=== PATIENT | female | born 1985 | race Hispanic/Latino ===

== ENCOUNTER 2019-03-30 10:19 | Inpatient (IN) | payer MEDICAID, OTHER, SELFPAY ==
[2019-03-30] MEDS ORDERED: Butorphanol Tartrate 1 MG/ML VIAL SLOW IVP PRN (10:49)
[2019-03-30] MEDS ORDERED: Ondansetron PF 4 MG/2 ML Vial IVP PRN ×2 (10:49→12:33)
[2019-03-30] MEDS ORDERED: NS / Oxytocin 40 units/1000ml 1,000 ML IV PRN (10:49)
[2019-03-30] MEDS ORDERED: Lidocaine 1% (PF) 30 ML VIAL SC PRN (10:49)
[2019-03-30] MEDS ORDERED: Misoprostol 200 MCG TAB PR PRN (10:49)
[2019-03-30] MEDS ORDERED: Ibuprofen 800 MG TAB PO PRN (10:49)
[2019-03-30] MEDS ORDERED: Lidocaine 1% (PF) 30 ML VIAL ONE (11:00)
[2019-03-30] MEDS: NS / Oxytocin 40 units/1000ml 1,000 ML IV SCH ×2 (11:00→11:55)
[2019-03-30] MEDS ORDERED: Lactated Ringer's 1,000 ML IV SCH ×2 (11:00)
[2019-03-30 11:30] LABS: Hemoglobin 13.9 g/dL (12.0-16.0); Mean Corpuscular HGB CONC 35.2 g/dL (32.0-36.0); Mean Corpuscular Hemoglobin 33.5 pg (27.0-31.0); Mean Corpuscular Volume 95.4 fL (78.0-98.0); Mean Platelet Volume 10.2 fL (7.4-10.4); Platelet Count 151 thou/uL (130-400); RBC Distribution Width 11.6 % (11.5-14.5); Red Blood Cell (RBC) Count 4.15 mill/uL (4.20-5.40); White Blood Cell (WBC) Count 12.6 thou/uL (4.8-10.8)
[2019-03-30 11:31] VITALS: BMI 22.1
[2019-03-30 12:03] LABS: HBSAg Index 0.41 S/CO (0-0.99); Hep B Surf Ag Non-Reactive S/CO (NonReactive); Syphilis Antibody Nonreactive (Nonreactive); Syphilis Antibody Index 0.07 S/CO (<1.00 Non-Reactive)
[2019-03-30] MEDS ORDERED: Benzocaine-Menthol 82.5 ML CAN TOP PRN (12:33)
[2019-03-30] MEDS ORDERED: Lanolin Ointment 7 GM TUBE TOP PRN (12:33)
[2019-03-30] MEDS ORDERED: Bisacodyl 10 MG SUPP PR PRN (12:33)
[2019-03-30] MEDS ORDERED: diphenhydrAMINE 25 MG CAP PO PRN (12:33)
[2019-03-30] MEDS ORDERED: HYDROcodone/Acetaminophen 5/325 mg Tablet PO PRN ×2 (12:33)
[2019-03-30] MEDS ORDERED: Promethazine HCl 25 MG/ML VIAL IM PRN (12:33)
[2019-03-30] MEDS ORDERED: NS / Oxytocin 40 units/1000ml 1,000 ML IV SCH (12:33)
[2019-03-30] MEDS ORDERED: Milk Of Magnesia 30 ML UDCUP PO PRN (12:33)
[2019-03-30] MEDS ORDERED: Misoprostol 200 MCG TAB ONE (12:57)
[2019-03-30] MEDS ORDERED: Methylergonovine 0.2 MG/ML VIAL ONE (12:57)
[2019-03-30] MEDS ORDERED: Methylergonovine 0.2 MG TAB ONE (12:57)
[2019-03-30] MEDS ORDERED: Carboprost 250 MCG/ML AMP ONE (12:58)
[2019-03-30] MEDS ORDERED: Misoprostol 200 MCG TAB PO SCH (13:30)
[2019-03-30] MEDS ORDERED: Diphenoxylate HCl/Atropine Tablet PO SCH (13:30)
[2019-03-30] MEDS: Ibuprofen 800 MG TAB PO SCH ×2 (15:53→22:23)
[2019-03-30] MEDS: Ferrous Sulfate 325 MG TAB PO SCH (16:35)
[2019-03-30] MEDS: Docusate Calcium (SURFAK) 240 MG CAP PO SCH (22:23)
[2019-03-31] MEDS: Ibuprofen 800 MG TAB PO SCH ×3 (05:37→21:21)
[2019-03-31 06:14] LABS: Hemoglobin 11.7 g/dL (12.0-16.0); Mean Corpuscular HGB CONC 34.4 g/dL (32.0-36.0); Mean Corpuscular Hemoglobin 33.2 pg (27.0-31.0); Mean Corpuscular Volume 96.4 fL (78.0-98.0); Mean Platelet Volume 10.2 fL (7.4-10.4); Platelet Count 142 thou/uL (130-400); RBC Distribution Width 11.8 % (11.5-14.5); Red Blood Cell (RBC) Count 3.51 mill/uL (4.20-5.40); White Blood Cell (WBC) Count 15.4 thou/uL (4.8-10.8)
[2019-03-31] MEDS: Ferrous Sulfate 325 MG TAB PO SCH ×2 (07:51→16:29)
[2019-03-31] MEDS: Docusate Calcium (SURFAK) 240 MG CAP PO SCH ×2 (09:34→21:22)
[2019-03-31] MEDS: Prenatal Vitamin 1 TAB PO SCH (09:34)
[2019-04-01] MEDS: Ibuprofen 800 MG TAB PO SCH ×2 (06:19→13:46)
[2019-04-01] MEDS: Prenatal Vitamin 1 TAB PO SCH (09:10)
[2019-04-01] MEDS: Docusate Calcium (SURFAK) 240 MG CAP PO SCH (09:11)
[2019-04-01] MEDS: Ferrous Sulfate 325 MG TAB PO SCH (09:11)
[2019-04-01 09:42] VITALS: BP 101/58; TEMP 98.3
== END 2019-04-01 15:30 | disposition home or self-care (01) | DRG 807 ==
LOC: L&D/OP 10:19 → L&D 10:52 → 3SW 15:41
PROVIDERS: ADMIT Family Medicine; ATTEND Family Medicine
PROC: 10E0XZZ Delivery of Products of Conception, External Approach (ICD-10-PCS; principal; 2019-03-30)
PROC: 0HQ9XZZ Repair Perineum Skin, External Approach (ICD-10-PCS; 2019-03-30)
DX: O70.0 First degree perineal laceration during delivery (principal); Z37.0 Single live birth; Z3A.38 38 weeks gestation of pregnancy; O67.9 Intrapartum hemorrhage, unspecified
CPT/HCPCS: 36415; 85027; 86780; 86850; 86900; 86901; 87340; 88307; 99285; J2001; J2210; J3490